=== PATIENT | male | born 1965 | race Caucasian/White ===

== ENCOUNTER 2021-04-22 15:19 | Day surgery (SDC) | payer MEDICARE ==
[2021-04-22] MEDS ORDERED: PROPOFOL 20 ML ONE (15:57)
[2021-04-22] MEDS ORDERED: Fentanyl 100 MCG/2 ML VIAL ONE (15:57)
[2021-04-22] MEDS ORDERED: Bupivacaine 0.25% HCL 30 ML VIAL ONE (16:03)
[2021-04-22] MEDS ORDERED: Ketamine 50 MG/ML (10ML VIAL) ONE (16:04)
[2021-04-22] MEDS ORDERED: EPINEPHrine 1 MG/ML AMP ONE (16:04)
[2021-04-22] MEDS ORDERED: Ketorolac Tromethamine 30 MG/ML VIAL ONE (16:04)
[2021-04-22] MEDS ORDERED: Lidocaine 1% PF 5 ML VIAL ONE (16:05)
[2021-04-22] MEDS ORDERED: Ondansetron PF 4 MG/2 ML Vial ONE (16:05)
[2021-04-22] MEDS ORDERED: HYDROmorphone 0.5 MG/0.5 ML SYRINGE ONE (16:05)
[2021-04-22] MEDS ORDERED: Rocuronium Bromide 10 MG/ML (10ML VIAL) ONE (16:05)
[2021-04-22] MEDS ORDERED: PHENYLEPHRINE-NS 100 MCG/ML 10 ML SYRINGE ONE (16:13)
[2021-04-22] MEDS ORDERED: ePHEDrine Sulfate 50 MG/10 ML VIAL ONE (16:15)
[2021-04-22] MEDS ORDERED: Dexamethasone 4 mg/ml Vial ONE (16:35)
[2021-04-22] MEDS ORDERED: Glycopyrrolate 0.2 MG/ML 5 ML SYRINGE ONE (16:50)
[2021-04-22] MEDS ORDERED: HYDROcodone/Acetaminophen 5/325 mg Tablet PO PRN ×2 (17:43)
[2021-04-22] MEDS ORDERED: HYDROcodone/Acetaminophen 5/325 mg Tablet ONE (18:12)
== END 2021-04-22 18:36 | disposition home or self-care (01) ==
LOC: CSHSDC/OP 15:19
PROVIDERS: ATTEND Emergency Medicine
PROC: 0DTJ4ZZ Resection of Appendix, Percutaneous Endoscopic Approach (ICD-10-PCS; principal; 2021-04-22)
DX: K35.30 Acute appendicitis with localized peritonitis, without perforation or gangrene (principal); I48.0 Paroxysmal atrial fibrillation; E78.5 Hyperlipidemia, unspecified; Z79.899 Other long term (current) drug therapy; Z79.01 Long term (current) use of anticoagulants
CPT/HCPCS: 44970; C1713; 88304; J0171; J1100; J1170; J1885; J2405; J2704; J3010; S0020